=== PATIENT | male | born 2005 | race Caucasian/White ===

== ENCOUNTER 2023-10-18 20:31 | Inpatient (IN) | payer OTHER ==
[~2023-10-18 20:31] MED LIST: Iopamidol-370 76% 500 ML MDV (1 ML CHARGE) ONE
[2023-10-18] MEDS ORDERED: HYDROmorphone 0.5 MG/0.5 ML SYRINGE ONE (20:37)
[2023-10-18 20:53] LABS: #Basophils 0.04 10x3/uL (0.0-0.2); %Basophils 0.2 % (0.0-1.0); %Eosinophils 0.6 % (0.0-10.0); %Lymphocytes 14.4 % (28.0-48.0); %Monocytes 5.4 % (0.0-4.0); %Neutrophils 78.9 % (31.0-61.0); Hematocrit 37.5 % (42.0-52.0); Mean Corpuscular HGB CONC 34.7 g/dL (32.0-36.0); Mean Corpuscular Hemoglobin 31.8 pg (25.0-35.0); Mean Corpuscular Volume 91.7 fL (78.0-98.0); Mean Platelet Volume 10.5 fL (7.4-10.4); Platelet Count 229 10x3/uL (130-400); RBC Distribution Width 12.4 % (11.5-14.5); Red Blood Cell (RBC) Count 4.09 mill/uL (4.00-5.20)
[2023-10-18] MEDS ORDERED: Dextrose 5% in Water 1,000 ML IV PRN (20:56)
[2023-10-18] MEDS ORDERED: Acetaminophen 325 MG TAB PO PRN (20:56)
[2023-10-18] MEDS ORDERED: Promethazine HCl 25 MG/ML VIAL IM PRN (20:56)
[2023-10-18] MEDS ORDERED: Glucagon 1 MG/ML KIT IM PRN (20:56)
[2023-10-18] MEDS ORDERED: Dextrose 50% Abboject 50 ML SYRINGE SLOW IVP PRN (20:56)
[2023-10-18] MEDS ORDERED: traMADol HCl 50 MG TAB PO PRN (20:56)
[2023-10-18] MEDS ORDERED: Ondansetron PF 4 MG/2 ML Vial IVP PRN (20:56)
[2023-10-18 21:04] LABS: Alcohol Less than 10.0 mg/dL (Less than 10)
[2023-10-18 21:05] LABS: INR-International Normal Ratio 1.4; Prothrombin Time 16.9 sec (12.0-14.7)
[2023-10-18 21:07] LABS: ALT (SGPT) 37 U/L (8-55); AST (SGOT) 54 U/L (5-34); Albumin 3.5 g/dL (3.5-5.0); Alkaline Phosphatase 49 U/L (50-130); Anion Gap 13 mmol/L (10-20); BUN (Urea Nitrogen) 21 mg/dL (8.9-20.6); Bilirubin, Total 0.7 mg/dL (0.2-1.2); Calc. Creatinine Clearance 0 mL/min (70-130); Calcium 8.2 mg/dL (7.8-10.44); Carbon Dioxide 18 mmol/L (22-29); Chloride 114 mmol/L (98-107); Estimated GFR 84; Globulin 2.2 g/dL (2.4-3.5); Glucose 99 mg/dL (70-105); Lipase 139 U/L (8-78); Potassium 3.2 mmol/L (3.5-5.1); Protein, Total 5.7 g/dL (6.0-8.3); Sodium 142 mmol/L (136-145)
[2023-10-18] MEDS ORDERED: Tranexamic Acid 1,000 MG/10 ML VIAL ONE (21:29)
[2023-10-18] MEDS ORDERED: Boostrix 0.5 ML (Tdap) VIAL (>/=7 yrs of age) ONE (21:37)
[2023-10-18 21:38] LABS: Hematocrit 34.9 % (42.0-52.0); Hemoglobin 12.1 g/dL (14.0-18.0)
[2023-10-18] MEDS ORDERED: Ondansetron PF 4 MG/2 ML Vial ONE ×2 (21:58→22:08)
[2023-10-18] MEDS ORDERED: Lidocaine 1% PF 5 ML VIAL ONE (22:08)
[2023-10-18] MEDS ORDERED: fentaNYL PF 100 MCG/2 ML SYRINGE ONE ×2 (22:08→23:40)
[2023-10-18] MEDS ORDERED: SUCCINYLCHOLINE/SOD CL,ISO/PF 200 MG/10 ML SYRINGE FS ONE (22:08)
[2023-10-18] MEDS ORDERED: SUGAMMADEX SODIUM 200 MG/2 ML VIAL ONE (22:08)
[2023-10-18] MEDS ORDERED: Dexamethasone 20 MG/5 ML VIAL ONE (22:08)
[2023-10-18] MEDS ORDERED: PROPOFOL 20 ML ONE (22:08)
[2023-10-18] MEDS ORDERED: Rocuronium Bromide 10 MG/ML (10ML VIAL) ONE (22:08)
[2023-10-18] MEDS ORDERED: Midazolam HCl 2 mg/2 ml Vial ONE (22:09)
[2023-10-18] MEDS ORDERED: ePHEDrine Sulfate 50 MG/10 ML VIAL ONE (22:12)
[2023-10-18] MEDS ORDERED: PHENYLEPHRINE-NS 100 MCG/ML 10 ML SYRINGE ONE (22:12)
[2023-10-18] MEDS ORDERED: Phenylephrine 10 MG/ML VIAL ONE (22:43)
[2023-10-18] MEDS ORDERED: CEFAZOLIN 2 GM in Sodium Chloride 0.9% 100 ML IVPB SCH (23:45)
[2023-10-18] MEDS ORDERED: Meperidine HCl/PF 25 MG (1 mL) VIAL ONE (23:54)
[2023-10-19] MEDS ORDERED: Promethazine HCl 25 MG/ML VIAL IM PRN (00:05)
[2023-10-19] MEDS ORDERED: Ondansetron HCl/PF 4 MG/2 ML Vial IVP PRN (00:05)
[2023-10-19] MEDS ORDERED: Morphine Sulfate 2 MG/ML SYRINGE SLOW IVP PRN (00:05)
[2023-10-19] MEDS ORDERED: Non-Formulary Medication 1 EACH PO PRN (00:22)
[2023-10-19] MEDS ORDERED: Meperidine HCl/PF 25 MG/ML VIAL IV PRN (00:30)
[2023-10-19] MEDS ORDERED: HYDROmorphone 2 MG/ML VIAL SLOW IVP PRN (00:30)
[2023-10-19 00:49] LABS: Hematocrit 33.2 % (42.0-52.0); Hemoglobin 11.5 g/dL (14.0-18.0); Platelet Count 229 10x3/uL (130-400)
[2023-10-19] MEDS: Acetaminophen 325 MG TAB PO SCH (01:24)
[2023-10-19] MEDS: Ibuprofen 200 MG TAB PO SCH (01:28)
[2023-10-19 02:53] VITALS: BMI 25.5
[2023-10-19 04:33] LABS: #Basophils Less than 0.03 10x3/uL (0.0-0.2); #Eosinphils Less than 0.03 10x3/uL (0.0-0.7); %Basophils 0.1 % (0.0-1.0); %Monocytes 8.2 % (0.0-4.0); %Neutrophils 89.4 % (31.0-61.0); Hematocrit 31.4 % (42.0-52.0); Hemoglobin 10.9 g/dL (14.0-18.0); Mean Corpuscular HGB CONC 34.7 g/dL (32.0-36.0); Mean Corpuscular Hemoglobin 31.8 pg (25.0-35.0); Mean Corpuscular Volume 91.5 fL (78.0-98.0); Mean Platelet Volume 10.4 fL (7.4-10.4); Platelet Count 197 10x3/uL (130-400); RBC Distribution Width 12.7 % (11.5-14.5); Red Blood Cell (RBC) Count 3.43 mill/uL (4.00-5.20)
[2023-10-19 04:47] LABS: Phosphorus 3.7 mg/dL (2.3-4.7)
[2023-10-19 04:53] LABS: Anion Gap 15 mmol/L (10-20); BUN (Urea Nitrogen) 19 mg/dL (8.9-20.6); Calc. Creatinine Clearance 154 mL/min (70-130); Carbon Dioxide 17 mmol/L (22-29); Chloride 112 mmol/L (98-107); Estimated GFR 125; Glucose 132 mg/dL (70-105); Magnesium 1.7 mg/dL (1.7-2.2); Potassium 4.5 mmol/L (3.5-5.1); Sodium 139 mmol/L (136-145)
[2023-10-19] MEDS: traMADol HCl 50 MG TAB PO PRN (05:08)
[2023-10-19] MEDS: Tranexamic Acid 1,000 MG, Admixture Fee 1 EACH in Sodium Chloride 0.9% 250 ML 250 ML IVPB SCH (07:43)
[2023-10-19] MEDS: Gentamicin 300 MG, Admixture Fee 1 EACH in Sodium Chloride 0.9% 100 ML IVPB SCH (07:47)
[2023-10-19] MEDS: Famotidine 20 MG TAB PO SCH (07:48)
[2023-10-19] MEDS: TETANUS, DIPHTHERIA TOX,ADULT (TDVAX) 0.5 ML VIAL IM ONE (07:48)
[2023-10-19] MEDS: Potassium Chloride 20 MEQ TAB PO SCH (07:49)
[2023-10-19] MEDS: Lactated Ringer's 1,000 ML IV SCH (07:49)
[2023-10-19] MEDS: Ascorbic Acid 500 mg Chewable Tablet PO SCH (08:39)
[2023-10-19] MEDS: Ferrous Sulfate 325 MG TAB PO SCH (08:39)
[2023-10-19] MEDS: Gabapentin 300 MG CAP PO SCH (08:39)
[2023-10-19 10:18] LABS: Hematocrit 30.5 % (42.0-52.0); Hemoglobin 10.6 g/dL (14.0-18.0)
[2023-10-19] MEDS: Morphine 4 MG/ML VIAL SLOW IVP PRN (10:26)
[2023-10-19] MEDS ORDERED: Iopamidol-370 76% 500 ML MDV (1 ML CHARGE) ONE (12:43)
[2023-10-20 06:16] LABS: #Basophils 0.03 10x3/uL (0.0-0.2); %Basophils 0.3 % (0.0-1.0); %Eosinophils 1.8 % (0.0-10.0); %Lymphocytes 22.3 % (28.0-48.0); %Monocytes 12.2 % (0.0-4.0); %Neutrophils 63.1 % (31.0-61.0); Hematocrit 25.4 % (42.0-52.0); Hemoglobin 8.6 g/dL (14.0-18.0); Mean Corpuscular HGB CONC 33.9 g/dL (32.0-36.0); Mean Corpuscular Volume 94.4 fL (78.0-98.0); Platelet Count 133 10x3/uL (130-400); RBC Distribution Width 12.8 % (11.5-14.5); Red Blood Cell (RBC) Count 2.69 mill/uL (4.00-5.20)
[2023-10-20 06:49] LABS: Anion Gap 8 mmol/L (10-20); BUN (Urea Nitrogen) 19 mg/dL (8.9-20.6); Calc. Creatinine Clearance 155 mL/min (70-130); Calcium 8.3 mg/dL (7.8-10.44); Carbon Dioxide 25 mmol/L (22-29); Chloride 108 mmol/L (98-107); Estimated GFR 126; Glucose 91 mg/dL (70-105); Magnesium 1.9 mg/dL (1.7-2.2); Phosphorus 2.3 mg/dL (2.3-4.7); Sodium 137 mmol/L (136-145)
[2023-10-20] MEDS: Polyethylene Glycol 3350 17 GM Packet PO SCH (08:28)
[2023-10-20] MEDS: Senokot S 8.6-50 MG TAB PO SCH (08:28)
[2023-10-20 11:45] LABS: Hematocrit 26.2 % (42.0-52.0); Hemoglobin 8.8 g/dL (14.0-18.0)
[2023-10-20 16:56] LABS: Hematocrit 26.6 % (42.0-52.0); Hemoglobin 8.9 g/dL (14.0-18.0)
[2023-10-20] MEDS: Enoxaparin 40 MG (0.4 mL) SYRINGE SC SCH (22:10)
[2023-10-21 04:30] LABS: Hematocrit 23.1 % (42.0-52.0)
[2023-10-22 07:05] LABS: #Basophils 0.03 10x3/uL (0.0-0.2); %Basophils 0.3 % (0.0-1.0); %Eosinophils 4.4 % (0.0-10.0); %Lymphocytes 22.5 % (28.0-48.0); %Monocytes 10.1 % (0.0-4.0); %Neutrophils 62.3 % (31.0-61.0); Hematocrit 23.9 % (42.0-52.0); Hemoglobin 8.2 g/dL (14.0-18.0); Mean Corpuscular HGB CONC 34.3 g/dL (32.0-36.0); Mean Corpuscular Hemoglobin 31.3 pg (25.0-35.0); Mean Corpuscular Volume 91.2 fL (78.0-98.0); Platelet Count 169 10x3/uL (130-400); RBC Distribution Width 12.7 % (11.5-14.5); Red Blood Cell (RBC) Count 2.62 mill/uL (4.00-5.20)
[2023-10-23 16:15] VITALS: BP 125/66; TEMP 98.7
== END 2023-10-23 17:08 | disposition home or self-care (01) | DRG 956 ==
LOC: ERS 20:31 → SDC/OP 22:09 → IMCU/EMU 10-19 01:14 → SURG B 10-21 23:29
PROVIDERS: ADMIT Student in an Organized Health Care Education/Training Program; ATTEND Student in an Organized Health Care Education/Training Program
PROC: 0QS706Z Reposition Left Upper Femur with Intramedullary Internal Fixation Device, Open Approach (ICD-10-PCS; principal; 2023-10-19)
PROC: 3E033XZ Introduction of Vasopressor into Peripheral Vein, Percutaneous Approach (ICD-10-PCS; 2023-10-19)
DX: S72.002B Fracture of unspecified part of neck of left femur, initial encounter for open fracture type I or II (principal); S36.032A Major laceration of spleen, initial encounter; J96.01 Acute respiratory failure with hypoxia; S22.32XA Fracture of one rib, left side, initial encounter for closed fracture; S27.0XXA Traumatic pneumothorax, initial encounter; G89.11 Acute pain due to trauma; S36.81XA Injury of peritoneum, initial encounter; S27.322A Contusion of lung, bilateral, initial encounter; E87.6 Hypokalemia; V29.498A Other motorcycle driver injured in collision with other motor vehicles in traffic accident, initial encounter; R55 Syncope and collapse
CPT/HCPCS: 36415; 36416; 70450; 70498; 71045; 71260; 72125; 72170; 74177; 80048; 80053; 80307; 83690; 83735; 84100; 85014; 85018; 85025; 85049; 85610; 85730; 86850; 86900; 86901; 90715; 93005; C1713; G0390; J1100; J1170; J1580; J1650; J2175; J2250; J2270; J2371; J2405; J2704; J3490; J7050; J7120; Q9967